=== PATIENT | female | born 1980 | race Hispanic/Latino ===

== ENCOUNTER → 2025-07-03 | Outpatient (CLI) | payer SELFPAY ==
--- NOTE | 2025-07-03 22:13 | HMCIMG ---
EXAM: XR Cervical spine, 5 Views total. CLINICAL HISTORY: 45 year old female with cervicalgia. COMPARISON: None provided. FINDINGS: BONES: No acute fracture or aggressive appearing osseous lesion. Posterior vertebral body alignment is within normal limits in the cervical spine. DISCS/DEGENERATIVE CHANGES: The disc spaces are preserved. Straightening of the cervical spine is noted, which may be related to positioning or muscle spasm. SOFT TISSUES: No prevertebral soft tissue swelling evident in the cervical spine. The visualized lungs appear clear. IMPRESSION: 1. Straightening of the cervical spine, possibly related to positioning or muscle spasm. /[place]
== END | disposition home or self-care (01) ==
LOC: RAH 13:00
PROVIDERS: ATTEND Physical Medicine & Rehabilitation
DX: M54.2 Cervicalgia (principal)
CPT/HCPCS: 72050